=== PATIENT | male | born 1985 | race Caucasian/White ===

== ENCOUNTER 2016-10-18 23:18 | Emergency (ER) | payer OTHER ==
[~2016-10-18 23:18] MED LIST: ACETAMINOPHEN325 MG PO; LANTUS100 UNIT/1 SQ; NOVOLOG FL100 UNIT/1 SQ; POLYETHYLENE GL17 GM PO; SEROQUEL100 MG PO; VENLAFAXINE HC225 MG PO
== END 2016-10-19 00:56 | disposition left against medical advice (07) ==
LOC: ER 23:18
DX: R10.12 Left upper quadrant pain (principal); R11.0 Nausea; E11.9 Type 2 diabetes mellitus without complications; F41.9 Anxiety disorder, unspecified; F32.9 Major depressive disorder, single episode, unspecified; G47.00 Insomnia, unspecified; Z79.899 Other long term (current) drug therapy; Z79.4 Long term (current) use of insulin; Z88.2 Allergy status to sulfonamides; Z88.6 Allergy status to analgesic agent; Z88.8 Allergy status to other drugs, medicaments and biological substances
CPT/HCPCS: 36415; 96374; 96375